=== PATIENT | male | born 1960 | race African-American/Black ===

== ENCOUNTER 2018-09-09 02:31 | Emergency (ER) | payer OTHER ==
[~2018-09-09] VITALS: Ht 177.8 cm; Wt 104.0 kg
[2018-09-09] MEDS ORDERED: KETOROLAC 30MG/ML VIAL IM ONE ×2 (05:45→07:00)
[2018-09-09] MEDS ORDERED: KETOROLAC 60MG/2ML VIAL IM ONE (06:45)
[2018-09-09] MEDS ORDERED: DEXAMETHASONE 10 MG/ML VIAL IM ONE (08:30)
[2018-09-09] MEDS ORDERED: DIAZEPAM 2 MG TABLET PO ONE (08:30)
[2018-09-09 14:09] VITALS: BP 142/77
== END 2018-09-09 15:15 | disposition home or self-care (01) ==
LOC: ER 02:31
DX: M54.42 Lumbago with sciatica, left side (principal); G89.29 Other chronic pain; M19.90 Unspecified osteoarthritis, unspecified site; Z90.49 Acquired absence of other specified parts of digestive tract; Z59.0 Homelessness
CPT/HCPCS: 96372; 99283; J1100; J1885; Z7610